=== PATIENT | male | born 1955 | race Caucasian/White ===

== ENCOUNTER 2020-01-15 01:32 | Inpatient (IN) | payer MEDICAID, OTHER ==
[2020-01-15] VITALS (18 sets, daily range): BP systolic 125–202; BP diastolic 78–124
[~2020-01-15] VITALS: Ht 172.7 cm; Wt 99.8 kg
[2020-01-15] MEDS ORDERED: Omnipaque-300 100ml vial INJ PRN (01:45)
[2020-01-15] MEDS ORDERED: Morphine Sulfate 4mg/ml Inj (IV USE ONLY) IVP ONE (01:45)
[2020-01-15 01:59] LABS: EOSINOPHILS % (AUTO) 4.6 % (0.0-3.0); HEMATOCRIT 53.7 % (42.0-52.0); HEMOGLOBIN 17.4 G/DL (14.2-18.0); LYMPHOCYTES % (AUTO) 16.8 % (20.0-45.0); MEAN CORPUSCULAR VOLUME 86 FL (80-99); MONOCYTES % (AUTO) 4.2 % (1.0-10.0); NEUTROPHILS % (AUTO) 73.4 % (45.0-75.0); PLATELET COUNT 270 K/UL (150-450); RED BLOOD COUNT 6.23 M/UL (4.70-6.10); RED CELL DISTRIBUTION WIDTH 16.3 % (11.6-14.8); WHITE BLOOD COUNT 8.6 K/UL (4.8-10.8)
[2020-01-15] MEDS ORDERED: Labetalol 5mg/ml 20ml vial IV ONE (02:00)
--- NOTE | 2020-01-15 02:01 | Emergency Room Report ---
History of Present Illness General Chief Complaint: Abdominal Pain Source: Patient Present Illness HPI 64-year-old male with past medical history of hypertension, diverticulosis, ventral hernia presents by ambulance with complaint of abdominal pain near his hernia sites. Also endorses nausea and constipation. Last normal BM was 4 days ago. Last po was yesterday. Denies vomiting, melena, hematochezia, CP, cough, fever, SOB, back pain, flank pain or weakness. The patient's symptoms were gradual onset, severity was moderate, duration since 4 days. Quality: aching Past medical history: HTN, Diverticulosis Past surgical history: Ventral hernia repair with mesh 15 years ago -- @ [facility] Smoking: Denies Alcohol use: Denies Drug use: Denies Review of systems: CONST: No fevers or chills, No night sweats PULMONARY: No productive cough, No shortness of breath CARDIAC: No chest pain, No palpitations GI: No vomiting, +Nausea, No diarrhea , No melena_or_BRBPR : No dysuria, No hematuria, No discharge NEURO: No new_focal_weakness_or_numbness, No confusion, No vision changes 14 point Review of Systems is otherwise negative except per HPI Physical Exam: GENERAL: Awake_alert_ nontoxic, no acute distress Spo2 100% on RA -normal EYES: Extraocular muscles are intact. Conjunctivae clear. Lids without swelling ENT: External nose and ear normal_in_appearance. Oropharynx clear. Head_ atraumatic, Moist_oral_mucosa NECK: No JVD. No meningismus. No thyromegaly. Supple. Trachea midline RESP: Normal respiratory effort. Symmetric rise. No stridor. Clear_to_ auscultation_No_rales_No_wheezes CARDIAC: Regular rate and regular rhythm on_auscultation No_significant pedal edema. ABDOMEN: Soft. Nondistended. Midline Exlap scar well healed. +Ventral hernia x 2 with warmth. Will not attempt reduction due to concern for strangulation MSK: Normal muscle tone, without rigidity. Extremities without asymmetric deformity or swelling. SKIN: Warm and dry. No visible cyanosis or pallor NEUROLOGIC: Alert, oriented x3. Motor_and_sensation_grossly_intact. No truncal ataxia. Gait_normal Psych: Normal mood and affect, normal judgment and insight - COORDINATION OF CARE Case was discussed with: Patient Any labs and imaging that were ordered were interpreted as part of the medical decision making: Medical Decision Making/Plan: Differential diagnosis includes cholecystitis, choledocholithiasis, hepatitis, small bowel obstruction, volvulus, AAA, pancreatitis, atypical appendicitis, gastroparesis, gastritis, peptic ulcer disease, among others. Patient is well appearing with stable vital signs. Abdominal exam is notable for warm and tender L ventral hernia x 2. Did not attempt reduction due to concern for incarcerated vs strangulated hernia. Labs show no acute disease EKG shows no acute ischemia. CT abd/pelvis shows 2 incarcerated left ventral hernias with surrounding fat stranding and free fluid. The bowel loops are mildly dilating and there is small bowel obstruction. 0330: General surgery Dr. Hendricks was consulted. Was able to reduce hernia at bedside, however due to large surgical wound dehiscence at abdominal wall (seen on CT review), hernia popped out. Initially recommended admit for serial abdominal exams, but on further exam on CT, recommends likely operative repair this afternoon. Pt received Zosyn and vancomycin. Will be kept NPO. Will delay NG tube for now given incarcerated hernia and increased inflammation. The patients symptoms are not consistent with ACS (acute coronary syndrome), symptoms are not exertional, EKG without obvious ischemic change. Will admit to SDU. I spoke with Dr. Fletcher (covering for Dr Barajas), and reviewed the patients presentation, workup, results, and treatment. They will admit the patient for further care and evaluation, and assume care of the patient at this time. Allergies: Coded Allergies: No Known Allergies (Verified , 12/20/07) COVID-19 Screening Contact w/high risk pt: No Experienced COVID-19 symptoms?: No COVID-19 Testing performed CREW PERSON: No Nursing Documentation-PMH Hx Cardiac Problems: Yes - HLD Hx Hypertension: Yes Hx Cancer: No Hx Gastrointestinal Problems: Yes - DIVERTICULITIS Hx Neurological Problems: No Physical Exam Vital Signs Date Time Temp Pulse Resp B/P (MAP) Pulse Ox O2 Delivery O2 Flow Rate FiO2 01/15/20 01:27 98.8 88 18 210/150 (170) 99 Room Air Sp02 EP Interpretation: reviewed, normal Procedures Critical Care Time Critical Care Time Critical Care Statement Organ systems at risk include: Cardiac, circulatory, GI Critical care performed for 50 minutes. Time is exclusive of separately billable procedures. Time includes: direct patient care, continuous monitoring and multiple patient reassessment, coordination of patient care, review of patient's medical records , medical consultation, family consultation regarding treatment decisions and documentation of patient care. Medical Decision Making Diagnostic Impression: Primary Impression: Incarcerated hernia Additional Impressions: Ventral hernia HTN (hypertension) Diverticulosis EKG Diagnostic Results MEGHNA Ponce 12-lead EKG (interpreted by me) Time: 0151 Indication: Rhythm analysis Tracing visualized and Interpreted by me. Rhythm: Normal sinus rhythm Rate: 78 bpm QTc: 460 Morphology: No_significant_ST_elevations_or_depressions, No STEMI Impression: Normal_sinus_rhythm_without_significant_abnormality Rhythm Strip Diag. Results Rhythm Strip Time: 02:00 EP Interpretation: yes Rate: 81 Rhythm: NSR, no PVC's, no ectopy Chest X-Ray Diagnostic Results Chest X-Ray Diagnostic Results : MEGHNA Ponce Chest X-Ray: Views: [ 1 ] view(s) Indication: Chest pain Findings: Cardiomegaly. Mediastinum normal. No infiltrate. Impression: Cardiomegaly, mild vascular congestion The X-ray(s) were independently viewed and interpreted contemporaneously Electronically signed by , Taina Rodriguez, CT/MRI/US Diagnostic Results CT/MRI/US Diagnostic Results : Impression CT Abdomen and Pelvis With Intravenous Contrast FINDINGS: Lung bases: No mass. No consolidation. Enlarged heart. ABDOMEN: Liver: Unremarkable. Gallbladder and bile ducts: Unremarkable. Pancreas: Unremarkable. Spleen: Unremarkable. Adrenals: Unremarkable. Kidneys and ureters: No hydronephrosis. Cysts bilaterally. Stomach and bowel: Mild dilatation of the small bowel loops in the midabdomen. Colonic diverticulosis. Thickened sigmoid colon. PELVIS: Appendix: No evidence of appendicitis. Bladder: Unremarkable. Reproductive: Unremarkable. ABDOMEN and PELVIS: Intraperitoneal space: Unremarkable. Bones/joints: No acute fractures. Grade 1 anterolisthesis of L5 on S1 secondary to bilateral L5 pars defects. Soft tissues: 2 left Ventral hernias containing loops of small bowel with mild dilatation of the small bowel loops. Fat stranding and free fluid in both hernia sacs. Right fat containing inguinal hernia. Vasculature: No abdominal aortic aneurysm. Lymph nodes: No enlarged lymph nodes. IMPRESSION: 1. 2 Left Ventral hernias containing loops of small bowel with fat stranding and free fluid concerning for incarceration in both sacs. The bowel loops are mildly starting to dilate, cannot exclude developing small bowel obstruction. 2. Colonic diverticulosis. Thickened sigmoid colon is again seen. Again, cannot exclude neoplastic process versus hypertrophy. Reevaluation Time: 02:54 Last Vital Signs Date Time Temp Pulse Resp B/P (MAP) Pulse Ox O2 Delivery O2 Flow Rate FiO2 01/15/20 01:56 88 210/150 01/15/20 01:27 98.8 18 99 Room Air Status: improved Disposition: ADMITTED INPATIENT Admit Decision Time: 03:00 Condition: Stable Scripts No Active Prescriptions or Reported Meds Taina Rodriguez D.O. Jan 15, 2020 02:01
[2020-01-15 02:07] LABS: INR 0.9 (0.9-1.1)
[2020-01-15 02:13] LABS: ANION GAP 12 mmol/L (5-15); BLOOD UREA NITROGEN 23 mg/dL (7-18); CALCIUM 9.1 MG/DL (8.5-10.1); CARBON DIOXIDE 24 MMOL/L (21-32); CHLORIDE 100 MMOL/L (98-107); CREATININE 1.1 MG/DL (0.55-1.30); POTASSIUM 3.8 MMOL/L (3.5-5.1); SODIUM 136 MMOL/L (136-145)
[2020-01-15 02:17] LABS: ALANINE AMINOTRANSFERASE 23 U/L (12-78); ALBUMIN 4.4 G/DL (3.4-5.0); ALBUMIN/GLOBULIN RATIO 1.1 (1.0-2.7); ALKALINE PHOSPHATASE 104 U/L (46-116); ASPARTATE AMINO TRANSFERASE 29 U/L (15-37); BILIRUBIN,TOTAL 0.4 MG/DL (0.2-1.0)
--- NOTE | 2020-01-15 03:26 | Diagnostic Imaging Report ---
EXAM: CT Abdomen and Pelvis With Intravenous Contrast CLINICAL HISTORY: PAIN TECHNIQUE: Axial computed tomography images of the abdomen and pelvis with intravenous contrast. CTDI is 14 mGy and DLP is 741 mGy-cm. One or more of the following dose reduction techniques were used: automated exposure control, adjustment of the mA and/or kV according to patient size, use of iterative reconstruction technique. COMPARISON: 06.23.19 FINDINGS: Lung bases: No mass. No consolidation. Enlarged heart. ABDOMEN: Liver: Unremarkable. Gallbladder and bile ducts: Unremarkable. Pancreas: Unremarkable. Spleen: Unremarkable. Adrenals: Unremarkable. Kidneys and ureters: No hydronephrosis. Cysts bilaterally. Stomach and bowel: Mild dilatation of the small bowel loops in the midabdomen. Colonic diverticulosis. Thickened sigmoid colon. PELVIS: Appendix: No evidence of appendicitis. Bladder: Unremarkable. Reproductive: Unremarkable. ABDOMEN and PELVIS: Intraperitoneal space: Unremarkable. Bones/joints: No acute fractures. Grade 1 anterolisthesis of L5 on S1 secondary to bilateral L5 pars defects. Soft tissues: 2 left Ventral hernias containing loops of small bowel with mild dilatation of the small bowel loops. Fat stranding and free fluid in both hernia sacs. Right fat containing inguinal hernia. Vasculature: No abdominal aortic aneurysm. Lymph nodes: No enlarged lymph nodes. IMPRESSION: 1. 2 Left Ventral hernias containing loops of small bowel with fat stranding and free fluid concerning for incarceration in both sacs. The bowel loops are mildly starting to dilate, cannot exclude developing small bowel obstruction. 2. Colonic diverticulosis. Thickened sigmoid colon is again seen. Again, cannot exclude neoplastic process versus hypertrophy.
[2020-01-15] MEDS ORDERED: Vancomycin 1 GM in NS 275 ML IVPB ONE (03:45)
[2020-01-15] MEDS ORDERED: Piperacillin/Tazobactam 2.25 GM in NS 110 ML IVPB ONE (03:45)
[2020-01-15 03:54] LABS: APPEARANCE,URINE CLEAR; BILIRUBIN, URINE NEGATIVE (NEGATIVE); COLOR,URINE PALE YELLOW; GLUCOSE, URINE (UA) NEGATIVE (NEGATIVE); KETONES,URINE NEGATIVE (NEGATIVE); LEUKOCYTE ESTERASE ,URINE NEGATIVE (NEGATIVE); NITRITE,URINE NEGATIVE (NEGATIVE); PH,URINE 6.5 (4.5-8.0); PROTEIN,URINE 3+ (NEGATIVE); UROBILINOGEN,URINE NORMAL MG/DL (0.0-1.0)
[2020-01-15] MEDS ORDERED: Acetaminophen 650 MG SUPP RECTAL PRN ×3 (04:00→21:45)
[2020-01-15] MEDS ORDERED: Morphine Sulfate 4mg/ml Inj (IV USE ONLY) IVP PRN ×3 (04:00→21:45)
[2020-01-15] MEDS ORDERED: D5 1/2NS w/KCl 20mEq 1,000 ML IV SCH ×3 (05:00→19:00)
[2020-01-15] MEDS ORDERED: Heparin 5000 units/ml inj SUBQ SCH (09:00)
--- NOTE | 2020-01-15 10:23 | History and Physical ---
Zita Pierre VETERINARY PARASITOLOGIST 01/15/20 1023: History of Present Illness General Date patient seen: Jan 15, 2020 Time patient seen: 08:30 Reason for Hospitalization: Abdominal Pain Present Illness HPI 64 years old male with PMH of diverticulitis, HTN, HLD, ventral hernias , exp lap years ago , presented to emergency department complaining of abdominal pain at the hernia sites. Patient reported nausea but no vomiting. He denied melena , hematochezia, BRBPR . No chest pain or shortness of breath. No cough. He denied fever and chills. Symptoms started gradually and increased over 4 days. Upon evaluation patient had no fever, but blood pressure was significantly elevated 210/150. CT of the abdomen pelvis showed two incarcerated ventral hernia with surrounding fat stranding and free fluid. The bowel loops were mildly dilated and there was a concern for small bowel obstruction. Laboratory work-up was stable. No leukocytosis Lactic acid 2.0. Troponin negative Stable electrolytes. BUN 23, creatinine 1.1. Troponin negative, pro BNP 55. EKG revealed sinus rhythm , no acute ischemic changes. Urinalysis revealed no evidence of urinary tract infection. Surgeon consulted and was able to reduce hernia at the bedside. However due to large surgical wound dehiscence at abdominal wound wall ,seen on CT review, hernia popped out. Surgeon initially recommended admit for serial abdominal exams, but on further examination and review of CT recommended operative repair. Patient received empiric Zosyn and vancomycin. Patient received labetalol IV. Patient started on the IV fluids, received analgesic and antiemetic and admitted to stepdown unit for further management Allergies: Coded Allergies: No Known Allergies (Verified , 12/20/07) COVID-19 Screening Contact w/high risk pt: No Experienced COVID-19 symptoms?: No Medication History No Active Prescriptions or Reported Meds Patient History History Provided By: Patient Healthcare decision maker Resuscitation status Full code Advanced Directive on File Past Medical/Surgical History Past Medical/Surgical History: (1) HTN (hypertension) (2) Diverticulosis Review of Systems Constitutional: Reports: weakness Eye: Reports: no symptoms ENT: Reports: no symptoms Respiratory: Reports: no symptoms Cardiovascular: Reports: no symptoms Gastrointestinal: Reports: see HPI Genitourinary: Reports: no symptoms Musculoskeletal: Reports: no symptoms Skin: Reports: no symptoms Psychiatric: Reports: no symptoms Neurological: Reports: no symptoms Endocrine: Reports: no symptoms Hematologic/Lymphatic: Reports: no symptoms Physical Exam General Appearance: WD/WN, no apparent distress, alert Lines, tubes and drains: peripheral HEENT: normocephalic, atraumatic, anicteric, PERRL, EOMI, supple, no JVD Neck: non-tender, normal alignment, supple Respiratory/Chest: chest wall non-tender, lungs clear, no respiratory distress , no accessory muscle use Cardiovascular/Chest: normal peripheral pulses, normal rate, regular rhythm, no JVD Abdomen: soft, other - midline explor lap scar well healed.; +Vventral hernia x 2 with warmth Extremities: normal range of motion, non-tender, no calf tenderness, normal capillary refill Skin Exam: normal pigmentation, warm/dry Neurologic: chief engineer production II-XII grossly normal, no motor/sensory deficits, alert, oriented x 3, responsive Musculoskeletal: normal muscle bulk Last 24 Hour Vital Signs Date Time Temp Pulse Resp B/P (MAP) Pulse Ox O2 Delivery O2 Flow Rate FiO2 01/15/20 08:43 160/103 01/15/20 08:33 160/103 (122) 01/15/20 08:27 97.7 77 20 157/103 (121) 97 01/15/20 08:00 83 01/15/20 05:00 97.0 85 14 155/102 (119) 96 01/15/20 04:59 Room Air 01/15/20 04:50 98.8 88 18 153/109 100 Room Air 01/15/20 02:55 88 173/96 100 Room Air 01/15/20 02:24 164/104 01/15/20 02:17 98.8 01/15/20 02:12 176/106 01/15/20 02:08 88 18 Room Air 01/15/20 02:08 98.8 76 18 202/102 99 Room Air 01/15/20 01:56 88 210/150 01/15/20 01:27 98.8 88 18 210/150 (170) 99 Room Air Intake and Output 01/14/20 01/15/20 19:00 07:00 Intake Total 0 ml Balance 0 ml Intake Oral 0 ml # Bowel Movements 1 Laboratory Tests Test 01/15/20 01:42 01/15/20 01:55 01/15/20 03:44 White Blood Count 8.6 K/UL (4.8-10.8) Red Blood Count 6.23 M/UL (4.70-6.10) H Hemoglobin 17.4 G/DL (14.2-18.0) Hematocrit 53.7 % (42.0-52.0) H Mean Corpuscular Volume 86 FL (80-99) Mean Corpuscular Hemoglobin 28.0 PG (27.0-31.0) Mean Corpuscular Hemoglobin Concent 32.4 G/DL (32.0-36.0) Red Cell Distribution Width 16.3 % (11.6-14.8) H Platelet Count 270 K/UL (150-450) Mean Platelet Volume 7.2 FL (6.5-10.1) Neutrophils (%) (Auto) 73.4 % (45.0-75.0) Lymphocytes (%) (Auto) 16.8 % (20.0-45.0) L Monocytes (%) (Auto) 4.2 % (1.0-10.0) Eosinophils (%) (Auto) 4.6 % (0.0-3.0) H Basophils (%) (Auto) 1.0 % (0.0-2.0) Prothrombin Time 10.5 SEC (9.30-11.50) Prothromb Time International Ratio 0.9 (0.9-1.1) Sodium Level 136 MMOL/L (136-145) Potassium Level 3.8 MMOL/L (3.5-5.1) Chloride Level 100 MMOL/L (98-107) Carbon Dioxide Level 24 MMOL/L (21-32) Anion Gap 12 mmol/L (5-15) Blood Urea Nitrogen 23 mg/dL (7-18) H Creatinine 1.1 MG/DL (0.55-1.30) Estimat Glomerular Filtration Rate > 60 mL/min (>60) Glucose Level 111 MG/DL (74-106) H Calcium Level 9.1 MG/DL (8.5-10.1) Total Bilirubin 0.4 MG/DL (0.2-1.0) Aspartate Amino Transf (AST/SGOT) 29 U/L (15-37) Alanine Aminotransferase (ALT/SGPT) 23 U/L (12-78) Alkaline Phosphatase 104 U/L (46-116) Troponin I 0.001 ng/mL (0.000-0.056) Pro-B-Type Natriuretic Peptide 55 pg/mL (0-125) Total Protein 8.3 G/DL (6.4-8.2) H Albumin 4.4 G/DL (3.4-5.0) Globulin 3.9 g/dL Albumin/Globulin Ratio 1.1 (1.0-2.7) Lipase 145 U/L (73-393) Lactic Acid Level 2.00 mmol/L (0.4-2.0) Urine Color Pale yellow Urine Appearance Clear Urine pH 6.5 (4.5-8.0) Urine Specific Gerber 1.010 (1.005-1.035) Urine Protein 3+ (NEGATIVE) H Urine Glucose (UA) Negative (NEGATIVE) Urine Ketones Negative (NEGATIVE) Urine Blood 2+ (NEGATIVE) H Urine Nitrite Negative (NEGATIVE) Urine Bilirubin Negative (NEGATIVE) Urine Urobilinogen Normal MG/DL (0.0-1.0) Urine Leukocyte Esterase Negative (NEGATIVE) Urine RBC 2-4 /HPF (0 - 0) H Urine WBC 0 /HPF (0 - 0) Urine Squamous Epithelial Cells None /LPF (NONE/OCC) Urine Bacteria None /HPF (NONE) Height (Feet): 5 Height (Inches): 8.00 Weight (Pounds): 222 Medications Current Medications Medications (Trade) Dose Ordered Sig/Leila Route PRN Reason Start Time Stop Time Status Last Admin Dose Admin Clonidine HCl (Catapres TTS-3) 1 patch QWEEK TDERMAL 01/15/20 09:00 04/14/20 08:59 01/15/20 08:43 Dextrose/ Electrolytes 1,000 ml @ 100 mls/hr Q10H IV 01/15/20 08:00 02/14/20 07:59 01/15/20 08:49 Heparin Sodium (Porcine) (Heparin 5000 units/ml) 5,000 units EVERY 12 HOURS SUBQ 01/15/20 09:00 02/29/20 08:59 Hydralazine HCl (Apresoline) 20 mg Q4H PRN IV SBP>170 01/15/20 07:17 04/14/20 07:16 Iohexol (OMNIPAQUE-300 100ml) 100 ml NOW PRN INJ Radiology Procedure 01/15/20 01:45 01/17/20 01:44 Morphine Sulfate (Morphine Sulfate) 4 mg Q4H PRN IVP For Pain 01/15/20 06:45 01/22/20 06:44 Ondansetron HCl (Zofran) 4 mg Q6H PRN IVP Nausea & Vomiting 01/15/20 06:45 02/14/20 06:44 Assessment/Plan Assessment/Plan: ASSESSMENT Incarcerated ventral hernia Possible small bowel obstruction Hypertension with initial hypertensive urgency Diverticular disease with a history of recurrent diverticulitis Hypertension Hyperlipidemia PLAN OF CARE LIZ NPO IVF surgery pending for this afternoon will get rapid COVID 19 pain management a/emetic prn DVT prophylaxis hold off on abx BP management with Clonidine patch and IV Hydralazine prn for BP spikes after surgery will optimize further as needed bowel regimen after surgery supportive care case discussed and evaluated by supervising physician Paul Hand MD 01/15/20 1439: History of Present Illness General Reason for Hospitalization: Abdominal Pain Present Illness Allergies: Coded Allergies: No Known Allergies (Verified , 12/20/07) Medication History No Active Prescriptions or Reported Meds Assessment/Plan Assessment/Plan: Patient seen and examined with VETERINARY PARASITOLOGIST. Agree with above A&P as it reflects our joint deliberations. Zita Pierre NP Jan 15, 2020 10:23 Paul Hand MD Jan 15, 2020 14:39
--- NOTE | 2020-01-15 10:46 | Diagnostic Imaging Report ---
Indication: Shortness of breath Technique: XRAY Chest 1v Comparison:12/20/2007 Findings: The heart is at the upper limits of normal size. Lungs are clear. No pleural fluid. Osseous structures mild degenerative changes in the spine. Impression: Borderline cardiomegaly. Degenerative changes in the spine.
--- NOTE | 2020-01-15 11:00 | Consultation ---
DATE OF CONSULTATION: 01/15/2020 PREOPERATIVE CONSULTATION CONSULTING PHYSICIAN: Mirella Hendricks MD. REFERRING PHYSICIAN: Emergency room physician. REASON FOR CONSULTATION: Abdominal pain. HISTORY OF PRESENT ILLNESS: This is a 64-year-old male, who presented to emergency room complaining of pain in the abdomen for about a month. He stated that he has been having pain off and on. But this time, the pain started about 12 hours prior to the admission and it is located above the umbilicus. The pain apparently is crampy. He denies any nausea or vomiting, but he stated that he tried to make himself vomit. The patient stated that 15 years ago he had a ventral herniorrhaphy, but later he had recurrence, but recently has been having pain. He had stated that this morning the hernia was irreducible and very tender. PAST MEDICAL HISTORY: He denies allergies, asthma, diabetes, cardiac and renal diseases. He has a history of hypertension. PAST SURGICAL HISTORY: Include ventral herniorrhaphy and some kind of surgery on the left groin. MEDICATIONS: None. SOCIAL HISTORY: The patient is a 64-year-old male, who is without any children. He is retired. He smokes half a pack of cigarettes per day and drinks occasionally. REVIEW OF SYSTEMS: Noncontributory. PHYSICAL EXAMINATION: GENERAL: The patient appeared to be a well-developed and well-nourished 64-year-old male, mildly obese, in no acute distress. HEENT: Head is normocephalic and atraumatic. Eyes, pupils are equal, round, and reactive to light. Mouth is clear. NECK: No palpable thyromegaly or adenopathy. CHEST: Clear to auscultation and percussion. HEART: There is no gallop or murmur. S1 and S2 are within normal limits. ABDOMEN: Mildly protuberant, but soft. He has a scar of the midline incision above the umbilicus. Hernia can be felt in this area, but this hernia is reducible. The patient stated that , although it is partially reducible and there is still some left that cannot be reduced and that causes discomfort. There is no palpable organomegaly and bowel sounds are audible. GENITALIA: Deferred. EXTREMITIES: Within normal limits. LABORATORY AND DIAGNOSTIC DATA: CBC and chemistry are normal. CAT scan has shown the ventral hernia and right inguinal hernia. ASSESSMENT: Incarcerated ventral hernia. PLAN: At this time, the patient required to be admitted for observation and later today he will undergo repair of this ventral hernia. The risks and benefits have been explained to him. He understood and he granted consent for it. Mirella Hendricks M.D. DR: KRIS JOB#: [id number] CC:
--- NOTE | 2020-01-15 13:57 | Pre-Procedure Note/Attestation ---
Pre-Procedure Note/Attestation Complete Prior to Procedure Planned Procedure: not applicable Procedure Narrative: venteral herniorrhaphy with application of mesh Indications for Procedure Pre-Operative Diagnosis: incarcerated ventral hernia Attestation I attest that I discussed the nature of the procedure; its benefits; risks and complications; and alternatives (and the risks and benefits of such alternatives ), prior to the procedure, with the patient (or the patient's legal insurance healthcare representative). I attest that, if there was a reasonable possibility of needing a blood transfusion, the patient (or the patient's legal insurance healthcare representative) was given the [facility] standardized written summary, pursuant to the [place] Blood Safety Act ([place] Health and Safety Code # 1645, as amended). I attest that I re-evaluated the patient just prior to the surgery and that there has been no change in the patient's H&P, except as documented below: Mirella Hendricks MD Jan 15, 2020 13:57
[2020-01-15] MEDS ORDERED: LR 1000ml 1,000 ML IVLG SCH (14:03)
[2020-01-15] MEDS ORDERED: Bacitracin 50000 Units Vial ONE (14:05)
[2020-01-15] MEDS ORDERED: Bupivacaine 0.25% Inj 30ml INJ ONE (14:05)
--- NOTE | 2020-01-15 14:07 | Anethesia Preoperative Eval ---
Anesthesia Pre-op PMH/ROS General Date of Evaluation: Jan 15, 2020 Time of Evaluation: 14:04 Anesthesiologist: Sadiq ASA Score: ASA 3 - Emergency Mallampati Score Class I : Soft palate, uvula, fauces, pillars visible Class II: Soft palate, uvula, fauces visible Class III: Soft palate, base of uvula visible Class IV: Only hard plate visible Mallampati Classification: Class III Surgeon: Ruthie Diagnosis: Abd Pain Surgical Procedure: Repair Ventral Hernia Anesthesia History: none Family History: no anesthesia problems Allergies: Coded Allergies: No Known Allergies (Verified , 12/20/07) Medications: see eMAR Patient NPO?: Yes Past Medical History Cardiovascular: Reports: HTN, other - HL Gastrointestinal/Genitourinary: Reports: other - Diverticulitis PSxH Narrative: other Sxs Anesthesia Pre-op Phys. Exam Physician Exam Last Vital Signs Date Time Temp Pulse Resp B/P (MAP) Pulse Ox O2 Delivery O2 Flow Rate FiO2 01/15/20 12:57 98.0 76 20 152/99 (116) 97 01/15/20 12:00 Room Air Constitutional: NAD Neurologic: CN 2-12 intact Cardiovascular: RRR Respiratory: CTA Gastrointestinal: S/NT/ND Airway Exam Mallampati Score: Class III MO: full ROM: limited Teeth: missing, intact Anesthesia Pre-op A/P Labs Hematology Test 01/15/20 01:42 White Blood Count 8.6 K/UL (4.8-10.8) Red Blood Count 6.23 M/UL (4.70-6.10) H Hemoglobin 17.4 G/DL (14.2-18.0) Hematocrit 53.7 % (42.0-52.0) H Mean Corpuscular Volume 86 FL (80-99) Mean Corpuscular Hemoglobin 28.0 PG (27.0-31.0) Mean Corpuscular Hemoglobin Concent 32.4 G/DL (32.0-36.0) Red Cell Distribution Width 16.3 % (11.6-14.8) H Platelet Count 270 K/UL (150-450) Mean Platelet Volume 7.2 FL (6.5-10.1) Neutrophils (%) (Auto) 73.4 % (45.0-75.0) Lymphocytes (%) (Auto) 16.8 % (20.0-45.0) L Monocytes (%) (Auto) 4.2 % (1.0-10.0) Eosinophils (%) (Auto) 4.6 % (0.0-3.0) H Basophils (%) (Auto) 1.0 % (0.0-2.0) Coagulation Test 01/15/20 01:42 Prothrombin Time 10.5 SEC (9.30-11.50) Prothromb Time International Ratio 0.9 (0.9-1.1) Chemistry Test 01/15/20 01:42 01/15/20 01:55 Sodium Level 136 MMOL/L (136-145) Potassium Level 3.8 MMOL/L (3.5-5.1) Chloride Level 100 MMOL/L (98-107) Carbon Dioxide Level 24 MMOL/L (21-32) Anion Gap 12 mmol/L (5-15) Blood Urea Nitrogen 23 mg/dL (7-18) H Creatinine 1.1 MG/DL (0.55-1.30) Estimat Glomerular Filtration Rate > 60 mL/min (>60) Glucose Level 111 MG/DL (74-106) H Calcium Level 9.1 MG/DL (8.5-10.1) Total Bilirubin 0.4 MG/DL (0.2-1.0) Aspartate Amino Transf (AST/SGOT) 29 U/L (15-37) Alanine Aminotransferase (ALT/SGPT) 23 U/L (12-78) Alkaline Phosphatase 104 U/L (46-116) Troponin I 0.001 ng/mL (0.000-0.056) Pro-B-Type Natriuretic Peptide 55 pg/mL (0-125) Total Protein 8.3 G/DL (6.4-8.2) H Albumin 4.4 G/DL (3.4-5.0) Globulin 3.9 g/dL Albumin/Globulin Ratio 1.1 (1.0-2.7) Lipase 145 U/L (73-393) Lactic Acid Level 2.00 mmol/L (0.4-2.0) Risk Assessment & Plan Assessment: ASA 3E Plan: GA, SED, GlideScope Status Change Before Surgery: No Pre-Antibiotics Dru Grams Ancef IV Given Within 1 Hr of Incision: Yes Time Given: 14:16 Julio César Babcock MD Jan 15, 2020 14:07
--- NOTE | 2020-01-15 14:08 | Immediate Post-Op Evaluation ---
Immediate Post-Op Evalulation Immediate Post-Op Evalulation Procedure: Repair Ventral Hernia Date of Evaluation: Jan 15, 2020 Time of Evaluation: 17:14 IV Fluids: 1500 LR Blood Products: 0 Estimated Blood Loss: 200 Urinary Output: 0 Blood Pressure Systolic: 158 Blood Pressure Diastolic: 95 Pulse Rate: 88 Respiratory Rate: 16 O2 Sat by Pulse Oximetry: 97 Temperature (Fahrenheit): 98 Pain Score (1-10): 2 Nausea: No Vomiting: No Complications 0 Patient Status: awake, reacts, patent, extubated, none Hydration Status: adequate Dru grams Ancef IV Given Within 1 Hr of Incision: Yes Time Given: 14:16 Julio César Babcock MD Jan 15, 2020 14:08
[2020-01-15] MEDS ORDERED: HYDROcodone/Acetamin 5/325 tab ORAL PRN (14:15)
[2020-01-15] MEDS ORDERED: fentaNYL 100 mcg/2 mL IV PRN (14:15)
[2020-01-15] MEDS ORDERED: oxyCODONE HCL/Acetaminophen 5/325mg ORAL PRN (14:15)
[2020-01-15] MEDS ORDERED: Atropine Sulfate 0.4mg/ml inj IVP PRN (14:15)
[2020-01-15] MEDS ORDERED: Hydromorphone 0.5mg/0.5ml inj IVP PRN ×3 (14:15→21:45)
[2020-01-15] MEDS ORDERED: Metoclopramide 10mg/2ml Inj IVP PRN ×3 (14:15→21:45)
[2020-01-15] MEDS ORDERED: Rocuronium Bromide 50mg/5ml Inj IV ONE (14:15)
[2020-01-15] MEDS ORDERED: Meperidine 25mg/0.5ml Inj (FOR RIGORS ONLY) IV PRN (14:15)
[2020-01-15] MEDS ORDERED: Acetaminophen (Non formulary) 100 ML IV ONE (14:15)
[2020-01-15] MEDS ORDERED: HYDROcodone/Acetamin 7.5/325 tab ORAL PRN (14:15)
[2020-01-15] MEDS ORDERED: Midazolam 2mg/2ml Inj IVP PRN (14:15)
[2020-01-15] MEDS ORDERED: DiphenhydrAMINE 50mg/ml Inj IVP PRN (14:15)
[2020-01-15] MEDS ORDERED: LORazepam Inj 2mg/ml 1ml IV PRN (14:15)
[2020-01-15] MEDS ORDERED: Lidocaine 1% MPF 10mg/ml 5ml ONE (14:21)
[2020-01-15] MEDS ORDERED: fentaNYL 100 mcg/2 mL IV ONE ×2 (14:22→15:38)
[2020-01-15] MEDS ORDERED: Glycopyrrolate 0.2mg/ml 1ml Vial ONE (14:53)
[2020-01-15] MEDS ORDERED: Neostigmine 1mg/ml 10ml Inj ONE (14:53)
[2020-01-15] MEDS ORDERED: NS Irrig 1000ml IRRIG ONE (15:13)
[2020-01-15] MEDS ORDERED: Ketamine 500mg/10ml vial ONE (15:38)
[2020-01-15] MEDS ORDERED: Lidocaine 1% Plain 30 ml INJ ONE (15:52)
--- NOTE | 2020-01-15 16:57 | Brief Operative Note ---
Immediate Post Operative Note Operative Note Pre-op Diagnosis: incarcerated ventral hernia Procedure: 1- ventral herniorrhaphy x4 with application of mesh 2- partial omentectomy Post-op Diagnosis: same as pre-op Findings: consistent w/pre-op dx studies Surgeon: MD Dolores Full Time Staff Interpreter: none Anesthesiologist: Dr. Xiao Anesthesia: general Specimen: yes Complications: none Condition: stable Fluids: per anesthesialogist Estimated Blood Loss: volume - 150 ml Drains: other - dima Implant(s) used?: Yes Mirella Hendricks MD Jan 15, 2020 16:57
[2020-01-15] MEDS ORDERED: HYDROmorphone 1mg/ml Carpuject IVP PRN (17:00)
[2020-01-15] MEDS: D5 1/2NS w/KCl 20mEq 1,000 ML IV SCH ×2 (21:45→22:48)
[2020-01-15] MEDS ORDERED: ceFAZolin sod 1 GM in D5W 55 ML IV SCH (22:00)
--- NOTE | 2020-01-15 22:44 | Operative Note - Dictated ---
DATE OF OPERATION: 01/15/2020 PREOPERATIVE DIAGNOSIS: Incarcerated ventral hernia. POSTOPERATIVE DIAGNOSIS: Incarcerated ventral hernia. OPERATION: 1. Ventral herniorrhaphy x4 with application of mesh. 2. Extensive lysis of the adhesion. 3. Partial omentectomy. COMPLICATIONS: None. SURGEON: Mirella Hendricks MD PER DIEM PHYSICAL THERAPIST ASSISTANT: None. ANESTHESIA: General with endotracheal tube. ANESTHESIOLOGIST: Julio César Babcock MD INDICATION: This is a 64-year-old male who presented to the emergency room complaining of abdominal pain. He stated that he has been having abdominal pain for about a year, but it has been off and on, but the last episode which was 12-hour prior to the admission, he had severe abdominal pain in the upper abdomen. He stated that he had hernia in this area, which was reducible, but prior to the admission it was irreducible and very tender. He denied vomiting or nausea. He has a history of hernia surgery about 15 years ago, which apparently has recurred. Physical examination on admission to the emergency room showed an irreducible ventral hernia at the mid epigastrium, but by the time that I saw the patient, the hernia was partially reduced but he continued having mild pain so the patient was admitted to the hospital and at this time he has been scheduled for ventral herniorrhaphy for incarceration of the hernia. DESCRIPTION OF PROCEDURE: The patient was placed supine on the operating table and after general anesthesia with endotracheal tube, the abdomen was properly prepped and draped. Initially midline incision was given above the umbilicus through the previous scar and was carried sharply through the subcutaneous tissue. At this area, we reached the hernia. It was very strange that the hernia did not have any and it was only the structures which seemed to be small bowel, so very carefully extensive meticulous dissection was performed and finally the whole mass was completely dissected. This mass especially extended on the right . The whole area was very carefully and meticulously dissected. There was absolutely no injury to this structure and then finally I was able to get inside to enter the abdomen and next to the structure, and at the entrance the whole mass was completely released. This was a large area about the size of a grapefruit. After this was completely released, I noticed that this was not a small bowel. It was only omentum, so the decision was made for partial omentectomy. The omentum underwent multiple ligation with 0 silk and the incarcerated part was completely removed. At this time, we had a defect in the fascia, which was about 3.5 to 4 inches in length. The small bowel was delivered in the wound and the small bowel was run and then it was completely freed. There was some small adhesions, which did not affect the small bowel, so it was again returned into the intraperitoneal cavity and then the fascia around the defect was isolated and at this time we noticed two more defects on the right side of the defect through which the preperitoneal fat was protruding. The preperitoneal fat was resected and the defects were repaired with #1 Prolene. The umbilicus was released and the patient had hernia in the umbilicus, which contained preperitoneal fat. Again, the preperitoneal fat was resected and the hernia was repaired with #[address], we had one major defect and three small defects. At this time, the defect in the fascia was repaired with running suture of #[address] hernia and defect in the fascia was completely repaired. The incision was thoroughly irrigated with antibiotic solution and then a piece of Prolene mesh was selected and was placed directly over the repair. This mesh was secured in place with running suture of 0 Prolene. After the application of the mesh, the incision again was irrigated with antibiotic solution and was infiltrated with 30 mL of Marcaine 0.25%. A Ramo drain was placed directly over the mesh and was brought out from the separate stab wound at the right lower quadrant. The subcutaneous tissue was approximated with running suture of 3-0 Vicryl and the skin incision, which was over 4 inches, was approximated with multiple skin charo. The patient tolerated the procedure very well and was transferred to recovery room in stable condition and extubated. COUNTS: The sponge and needle count was correct. ESTIMATED BLOOD LOSS: 150 mL. CONDITION: Condition of the patient at the end of procedure was stable. Mirella Hendricks M.D. DR: Roger JOB#: [id number] CC:
[2020-01-15] MEDS: ceFAZolin sod 1 GM in D5W 55 ML IV SCH (22:50)
[2020-01-16] VITALS: BP 133/82
[2020-01-16] MEDS ORDERED: Omnipaque-300 100ml vial INJ PRN (01:45)
[2020-01-16 04:00] VITALS: BP 127/72
[2020-01-16] MEDS: ceFAZolin sod 1 GM in D5W 55 ML IV SCH (06:11)
[2020-01-16 06:14] LABS: HEMATOCRIT 43.9 % (42.0-52.0); HEMOGLOBIN 13.8 G/DL (14.2-18.0); MEAN CORPUSCULAR VOLUME 88 FL (80-99); PLATELET COUNT 220 K/UL (150-450); RED BLOOD COUNT 4.98 M/UL (4.70-6.10); RED CELL DISTRIBUTION WIDTH 16.7 % (11.6-14.8); WHITE BLOOD COUNT 10.5 K/UL (4.8-10.8)
[2020-01-16 06:38] LABS: ANION GAP 8 mmol/L (5-15); BLOOD UREA NITROGEN 21 mg/dL (7-18); CALCIUM 8.6 MG/DL (8.5-10.1); CARBON DIOXIDE 25 MMOL/L (21-32); CHLORIDE 106 MMOL/L (98-107); POTASSIUM 3.8 MMOL/L (3.5-5.1); SODIUM 139 MMOL/L (136-145)
--- NOTE | 2020-01-16 07:03 | 48 Hour Post Anesthesia Eval ---
Post Anesthesia Evaluation Procedure: Repair Ventral Hernia Date of Evaluation: Jan 16, 2020 Time of Evaluation: 06:14 Blood Pressure Systolic: 122 0: 72 Pulse Rate: 74 Respiratory Rate: 20 Temperature (Fahrenheit): 98.2 O2 Sat by Pulse Oximetry: 96 Airway: patent Nausea: No Vomiting: No Pain Intensity: 3 Hydration Status: adequate Cardiopulmonary Status: Stable Mental Status/LOC: patient returned to baseline Follow-up Care/Observations: 0 Post-Anesthesia Complications: 0 Follow-up care needed: N/A Julio César Babcock MD Jan 16, 2020 07:03
[2020-01-16 08:00] VITALS: BP 165/109
[2020-01-16] MEDS ORDERED: Pantoprazole Inj IVP SCH (09:00)
[2020-01-16] MEDS: D5 1/2NS w/KCl 20mEq 1,000 ML IV SCH (09:01)
[2020-01-16] MEDS: Pantoprazole Inj IVP SCH (09:10)
[2020-01-16] MEDS: HYDROmorphone 1mg/ml Carpuject IVP PRN ×2 (09:12→20:16)
[2020-01-16] MEDS ORDERED: Metoprolol Succinate XL 25mg tab ORAL SCH ×2 (09:15→16:39)
[2020-01-16] MEDS ORDERED: Sterile Water Irrig 1000ml IRRIG ONE (09:18)
[2020-01-16] MEDS ORDERED: LR 1000ml ONE (09:18)
[2020-01-16] MEDS ORDERED: D5 1/2NS w/KCl 20mEq 1,000 ML IV SCH (10:01)
--- NOTE | 2020-01-16 10:03 | Pulmonology Progress Note ---
Zita Pierre WORKER'S COMPENSATION CLAIMS EXAMINER 01/16/20 1002: Subjective Allergies: Coded Allergies: No Known Allergies (Verified , 12/20/07) Subjective afebrile, no leukocytosis s/p hernia repair 01/14 denies pain, NPO passing gas, hungry Objective Last 24 Hour Vital Signs Date Time Temp Pulse Resp B/P (MAP) Pulse Ox O2 Delivery O2 Flow Rate FiO2 01/16/20 09:48 98.2 01/16/20 08:00 97.9 74 20 165/109 (127) 94 01/16/20 07:03 74 20 96 01/16/20 04:00 98.2 74 20 127/72 (90) 96 01/16/20 00:00 98.9 80 20 133/82 (99) 95 01/15/20 20:00 98.8 92 20 125/78 (94) 92 01/15/20 18:05 98.0 82 20 144/85 (104) 97 01/15/20 17:55 98.9 70 16 165/94 100 Nasal Cannula 3 01/15/20 17:40 69 15 159/82 98 Nasal Cannula 3 01/15/20 17:25 69 19 144/90 98 Nasal Cannula 3 01/15/20 17:15 70 17 161/84 98 Nasal Cannula 3 01/15/20 17:10 73 17 160/95 98 Nasal Cannula 3 01/15/20 17:05 81 22 189/104 97 Simple Mask 6 01/15/20 17:01 88 16 97 01/15/20 17:00 97.8 88 27 195/124 96 Simple Mask 6 01/15/20 12:57 98.0 76 20 152/99 (116) 97 01/15/20 12:26 181/117 01/15/20 12:21 98.1 72 20 181/117 (138) 97 01/15/20 12:00 Room Air 01/15/20 11:42 70 Intake and Output 01/15/20 01/16/20 19:00 07:00 Intake Total 2450 ml 900 ml Output Total 620 ml 420 ml Balance 1830 ml 480 ml IV Total 2450 ml 900 ml Output Urine Total 520 ml 390 ml Drainage Total 30 ml Peritoneal Dialysis UF 100 ml # Voids 1 3 Objective General Appearance: WD/WN, no apparent distress, alert Lines, tubes and drains: peripheral HEENT: normocephalic, atraumatic, anicteric, PERRL, EOMI, supple, no JVD Neck: non-tender, normal alignment, supple Respiratory/Chest: chest wall non-tender, lungs clear, no respiratory distress , no accessory muscle use Cardiovascular/Chest: normal peripheral pulses, normal rate, regular rhythm, no JVD Abdomen: soft, surg incision with dressing, JORGE drain with yellow-brown output ; abd binder on, + hypoactive BS x 4 quadrants Extremities: normal range of motion, non-tender, no calf tenderness, normal capillary refill; + 1 pedal edema Skin Exam: normal pigmentation, warm/dry Neurologic: windows deployment technician II-XII grossly normal, no motor/sensory deficits, alert, oriented x 3, responsive Musculoskeletal: normal muscle bulk Microbiology Date/Time Source Procedure Growth Status 01/15/20 09:40 Nasopharynx SARS-CoV-2 RdRp Gene Assay - Final Complete Laboratory Tests 01/16/20 05:45: White Blood Count 10.5, Red Blood Count 4.98, Hemoglobin 13.8L, Hematocrit 43.9 , Mean Corpuscular Volume 88, Mean Corpuscular Hemoglobin 27.8, Mean Corpuscular Hemoglobin Concent 31.5L, Red Cell Distribution Width 16.7H, Platelet Count 220, Mean Platelet Volume 6.6, Neutrophils (%) (Auto) , Lymphocytes (%) (Auto) , Monocytes (%) (Auto) , Eosinophils (%) (Auto) , Basophils (%) (Auto) , Sodium Level 139, Potassium Level 3.8, Chloride Level 106 , Carbon Dioxide Level 25, Anion Gap 8, Blood Urea Nitrogen 21H, Creatinine 1.0 , Estimat Glomerular Filtration Rate > 60, Glucose Level 121H, Calcium Level 8.6 Current Medications Medications (Trade) Dose Ordered Sig/Leila Route PRN Reason Start Time Stop Time Status Last Admin Dose Admin Acetaminophen (Tylenol) 650 mg Q4H PRN RECTAL FEVER (T>100.5) 01/15/20 21:45 02/14/20 21:44 Clonidine HCl (Catapres TTS-3) 1 patch QWEEK TDERMAL 01/22/20 09:00 04/14/20 08:59 Dextrose/ Electrolytes 1,000 ml @ 100 mls/hr Q10H IV 01/15/20 21:45 02/14/20 18:59 01/16/20 09:01 Heparin Sodium (Porcine) (Heparin 5000 units/ml) 5,000 units EVERY 12 HOURS SUBQ 01/16/20 21:45 02/29/20 21:44 Hydromorphone HCl (Dilaudid) 0.5 mg Q3H PRN IVP Pain Score 1-3 01/15/20 21:45 01/22/20 21:44 Hydromorphone HCl (Dilaudid) 1 mg Q3H PRN IVP pain score 4-6 01/15/20 21:45 01/22/20 21:44 01/16/20 09:12 Iohexol (OMNIPAQUE-300 100ml) 100 ml NOW PRN INJ Radiology Procedure 01/16/20 01:45 01/17/20 01:44 Metoclopramide HCl (Reglan) 10 mg Q6H PRN IVP Nausea & Vomiting 01/15/20 21:45 02/14/20 21:44 Metoprolol Succinate (Toprol XL) 25 mg DAILY ORAL 01/17/20 09:00 04/15/20 09:14 Morphine Sulfate (Morphine Sulfate) 4 mg Q4H PRN IVP Breakthrough Pain 01/15/20 21:45 01/22/20 21:44 Ondansetron HCl (Zofran) 4 mg Q6H PRN IVP Nausea & Vomiting 01/15/20 21:45 02/14/20 21:44 Pantoprazole (Protonix) 40 mg DAILY IVP 01/16/20 09:00 02/15/20 08:59 01/16/20 09:10 Assessment/Plan Assessment/Plan ASSESSMENT Incarcerated ventral hernia s/p ventral herniorrhaphy x4 with application of mesh and partial omentectomy Possible small bowel obstruction-ruled out Hypertension with initial hypertensive urgency Diverticular disease with a history of recurrent diverticulitis Hyperlipidemia PLAN OF CARE MS floor NPO IVF rapid COVID 19 NGT s/p ventral herniorrhaphy x4 with application of mesh and partial omentectomy 01/14 passing gas, hypoactive BS, ? start CL diet -as per surgery recs pain management IS at the bedside add Toprol with holding parameters and Hydralazine prn ; dc Clonidine patch a/emetic prn DVT and GI prophylaxis OOB as tolerated supportive care case discussed and evaluated by supervising physician Eugenio Barajas MD 01/16/20 1253: Subjective Allergies: Coded Allergies: No Known Allergies (Verified , 12/20/07) Assessment/Plan Assessment/Plan Patient seen and examined with WORKER'S COMPENSATION CLAIMS EXAMINER. Agree with above A&P as it reflects our joint deliberations. POD1 doing well + flatus no BM using IS pain controlled advance diet per surgery DVT Px Zita Pierre NP Jan 16, 2020 10:02 Eugenio Barajas MD Jan 16, 2020 12:53
[2020-01-16] MEDS: HydrALAZINE 10mg Tab ORAL PRN ×2 (11:42→18:52)
[2020-01-16 12:00] VITALS: BP 171/99
--- NOTE | 2020-01-16 14:36 | General Surgery Progress Note ---
General Surgery-Progress Note Subjective Procedure Performed 1- ventral herniorrhaphy x4 with application of mesh 2- partial omentectomy Symptoms: improved, passing flatus Objective Last 24 Hour Vital Signs Date Time Temp Pulse Resp B/P (MAP) Pulse Ox O2 Delivery O2 Flow Rate FiO2 01/16/20 12:00 98.1 74 18 171/99 (123) 94 01/16/20 11:42 165/109 01/16/20 09:48 98.2 01/16/20 08:00 97.9 74 20 165/109 (127) 94 01/16/20 07:03 74 20 96 01/16/20 04:00 98.2 74 20 127/72 (90) 96 01/16/20 00:00 98.9 80 20 133/82 (99) 95 01/15/20 20:00 98.8 92 20 125/78 (94) 92 01/15/20 18:05 98.0 82 20 144/85 (104) 97 01/15/20 17:55 98.9 70 16 165/94 100 Nasal Cannula 3 01/15/20 17:40 69 15 159/82 98 Nasal Cannula 3 01/15/20 17:25 69 19 144/90 98 Nasal Cannula 3 01/15/20 17:15 70 17 161/84 98 Nasal Cannula 3 01/15/20 17:10 73 17 160/95 98 Nasal Cannula 3 01/15/20 17:05 81 22 189/104 97 Simple Mask 6 01/15/20 17:01 88 16 97 01/15/20 17:00 97.8 88 27 195/124 96 Simple Mask 6 I&O Intake and Output 01/15/20 01/16/20 19:00 07:00 Intake Total 2450 ml 900 ml Output Total 620 ml 420 ml Balance 1830 ml 480 ml IV Total 2450 ml 900 ml Output Urine Total 520 ml 390 ml Drainage Total 30 ml Peritoneal Dialysis UF 100 ml # Voids 1 3 Dressing: dry Drains: dima Respiratory: clear Abdomen: soft, flat, present bowel sounds Extremities: no tenderness Laboratory Tests Test 01/16/20 05:45 White Blood Count 10.5 K/UL (4.8-10.8) Red Blood Count 4.98 M/UL (4.70-6.10) Hemoglobin 13.8 G/DL (14.2-18.0) L Hematocrit 43.9 % (42.0-52.0) Mean Corpuscular Volume 88 FL (80-99) Mean Corpuscular Hemoglobin 27.8 PG (27.0-31.0) Mean Corpuscular Hemoglobin Concent 31.5 G/DL (32.0-36.0) L Red Cell Distribution Width 16.7 % (11.6-14.8) H Platelet Count 220 K/UL (150-450) Mean Platelet Volume 6.6 FL (6.5-10.1) Neutrophils (%) (Auto) % (45.0-75.0) Lymphocytes (%) (Auto) % (20.0-45.0) Monocytes (%) (Auto) % (1.0-10.0) Eosinophils (%) (Auto) % (0.0-3.0) Basophils (%) (Auto) % (0.0-2.0) Sodium Level 139 MMOL/L (136-145) Potassium Level 3.8 MMOL/L (3.5-5.1) Chloride Level 106 MMOL/L (98-107) Carbon Dioxide Level 25 MMOL/L (21-32) Anion Gap 8 mmol/L (5-15) Blood Urea Nitrogen 21 mg/dL (7-18) H Creatinine 1.0 MG/DL (0.55-1.30) Estimat Glomerular Filtration Rate > 60 mL/min (>60) Glucose Level 121 MG/DL (74-106) H Calcium Level 8.6 MG/DL (8.5-10.1) Assessment Additional Comments S/P ventral herniorrhaphy Plan Additional Comments can be discharged tomorrow Mirella Hendricks MD Jan 16, 2020 14:36
[2020-01-16] MEDS ORDERED: traMADol 50mg tab ORAL PRN (14:45)
[2020-01-16] MEDS: Docusate Sod/Senna tab ORAL SCH ×2 (14:45→17:09)
[2020-01-16 16:00] VITALS: BP 164/85
[2020-01-16] MEDS: Lisinopril 10mg tab ORAL SCH (16:51)
[2020-01-16 20:00] VITALS: BP 147/93
[2020-01-16] MEDS: Heparin 5000 units/ml inj SUBQ SCH (21:23)
[2020-01-17] VITALS: BP 140/88
[2020-01-17 04:00] VITALS: BP 156/97
[2020-01-17 05:42] LABS: BASOPHILS % (AUTO) 0.4 % (0.0-2.0); EOSINOPHILS % (AUTO) 6.7 % (0.0-3.0); HEMATOCRIT 42.4 % (42.0-52.0); HEMOGLOBIN 13.6 G/DL (14.2-18.0); LYMPHOCYTES % (AUTO) 5.4 % (20.0-45.0); MEAN CORPUSCULAR VOLUME 88 FL (80-99); MONOCYTES % (AUTO) 5.9 % (1.0-10.0); NEUTROPHILS % (AUTO) 81.4 % (45.0-75.0); PLATELET COUNT 210 K/UL (150-450); RED BLOOD COUNT 4.84 M/UL (4.70-6.10); RED CELL DISTRIBUTION WIDTH 16.2 % (11.6-14.8); WHITE BLOOD COUNT 9.2 K/UL (4.8-10.8)
[2020-01-17 06:02] LABS: ANION GAP 9 mmol/L (5-15); BLOOD UREA NITROGEN 22 mg/dL (7-18); CALCIUM 8.9 MG/DL (8.5-10.1); CARBON DIOXIDE 26 MMOL/L (21-32); CHLORIDE 105 MMOL/L (98-107); CREATININE 1.1 MG/DL (0.55-1.30); SODIUM 140 MMOL/L (136-145)
--- NOTE | 2020-01-17 07:54 | Pulmonology Progress Note ---
Zita Pierre OPERATIONS MANAGEMENT TRAINEE 01/17/20 0754: Subjective Allergies: Coded Allergies: No Known Allergies (Verified , 12/20/07) Subjective afebrile, no leukocytosis sitting in the chair s/p hernia repair 01/14 denies pain, tolerates diet passing gas, no BM yet Objective Last 24 Hour Vital Signs Date Time Temp Pulse Resp B/P (MAP) Pulse Ox O2 Delivery O2 Flow Rate FiO2 01/17/20 04:00 98.3 81 19 156/97 (116) 95 01/17/20 00:00 98.0 76 19 140/88 (105) 96 01/16/20 20:55 Room Air 01/16/20 20:00 98.4 87 19 147/93 (111) 95 01/16/20 18:52 171/99 01/16/20 16:51 74 171/99 01/16/20 16:51 171/99 01/16/20 16:00 97.1 81 18 164/85 (111) 96 01/16/20 12:00 98.1 74 18 171/99 (123) 94 01/16/20 11:42 165/109 01/16/20 09:48 98.2 01/16/20 08:00 97.9 74 20 165/109 (127) 94 Intake and Output 01/16/20 01/17/20 19:00 07:00 Intake Total 300 ml Output Total 25 ml Balance 300 ml -25 ml Intake Oral 300 ml Drainage Total 25 ml # Voids 2 Objective General Appearance: WD/WN, no apparent distress, alert Lines, tubes and drains: peripheral HEENT: normocephalic, atraumatic, anicteric, PERRL, EOMI, supple, no JVD Neck: non-tender, normal alignment, supple Respiratory/Chest: chest wall non-tender, lungs clear, no respiratory distress , no accessory muscle use Cardiovascular/Chest: normal peripheral pulses, normal rate, regular rhythm, no JVD Abdomen: soft, surg incision with dressing, JORGE drain with scant output ; abd binder on, + hypoactive BS x 4 quadrants Extremities: normal range of motion, non-tender, no calf tenderness, normal capillary refill; + 1 pedal edema Skin Exam: normal pigmentation, warm/dry Neurologic: online program coordinator II-XII grossly normal, no motor/sensory deficits, alert, oriented x 3, responsive Musculoskeletal: normal muscle bulk Microbiology Date/Time Source Procedure Growth Status 01/15/20 09:40 Nasopharynx SARS-CoV-2 RdRp Gene Assay - Final Complete Laboratory Tests 01/17/20 04:40: White Blood Count 9.2, Red Blood Count 4.84, Hemoglobin 13.6L, Hematocrit 42.4, Mean Corpuscular Volume 88, Mean Corpuscular Hemoglobin 28.1, Mean Corpuscular Hemoglobin Concent 32.1, Red Cell Distribution Width 16.2H, Platelet Count 210, Mean Platelet Volume 6.7, Neutrophils (%) (Auto) 81.4H, Lymphocytes (%) (Auto) 5.4L, Monocytes (%) (Auto) 5.9, Eosinophils (%) (Auto) 6.7H, Basophils (%) (Auto ) 0.4, Sodium Level 140, Potassium Level 4.0, Chloride Level 105, Carbon Dioxide Level 26, Anion Gap 9, Blood Urea Nitrogen 22H, Creatinine 1.1, Estimat Glomerular Filtration Rate > 60, Glucose Level 92, Calcium Level 8.9 Current Medications Medications (Trade) Dose Ordered Sig/Leila Route PRN Reason Start Time Stop Time Status Last Admin Dose Admin Acetaminophen (Tylenol) 650 mg Q4H PRN RECTAL FEVER (T>100.5) 01/15/20 21:45 02/14/20 21:44 Heparin Sodium (Porcine) (Heparin 5000 units/ml) 5,000 units EVERY 12 HOURS SUBQ 01/16/20 21:45 02/29/20 21:44 01/16/20 21:23 Hydralazine HCl (Apresoline) 10 mg Q6H PRN ORAL SBP> 160 01/16/20 10:00 04/15/20 09:59 01/16/20 18:52 Hydromorphone HCl (Dilaudid) 0.5 mg Q3H PRN IVP Pain Score 1-3 01/15/20 21:45 01/22/20 21:44 Hydromorphone HCl (Dilaudid) 1 mg Q3H PRN IVP pain score 4-6 01/15/20 21:45 01/22/20 21:44 01/16/20 20:16 Lisinopril (ZestriL) 10 mg DAILY ORAL 01/16/20 16:40 02/15/20 16:39 01/16/20 16:51 Metoclopramide HCl (Reglan) 10 mg Q6H PRN IVP Nausea & Vomiting 01/15/20 21:45 02/14/20 21:44 Metoprolol Succinate (Toprol XL) 25 mg DAILY ORAL 01/17/20 09:00 04/15/20 09:14 Morphine Sulfate (Morphine Sulfate) 4 mg Q4H PRN IVP Breakthrough Pain 01/15/20 21:45 01/22/20 21:44 Ondansetron HCl (Zofran) 4 mg Q6H PRN IVP Nausea & Vomiting 01/15/20 21:45 02/14/20 21:44 Pantoprazole (Protonix) 40 mg DAILY IVP 01/16/20 09:00 02/15/20 08:59 01/16/20 09:10 Senna/Docusate Sodium (Hermelinda-Colace) 1 tab TWICE A DAY ORAL 01/16/20 14:45 02/15/20 14:44 01/16/20 17:09 Tramadol HCl (Ultram) 50 mg Q4H PRN ORAL For Pain 01/16/20 14:45 01/23/20 14:44 Assessment/Plan Assessment/Plan ASSESSMENT Incarcerated ventral hernia s/p ventral herniorrhaphy x4 with application of mesh and partial omentectomy Possible small bowel obstruction-ruled out Hypertension with initial hypertensive urgency Diverticular disease with a history of recurrent diverticulitis Hyperlipidemia PLAN OF CARE MS floor cardiac diet s/p IVF rapid COVID 19 NGT s/p ventral herniorrhaphy x4 with application of mesh and partial omentectomy 01/14 passing gas, no BM yet , add Colace diet as tolerated started- tolerates, a/emetic prn pain management IS at the bedside BP management with Toprol with holding parameters and SHAILESH; Hydralazine prn ; Clonidine patch was dc DVT and GI prophylaxis OOB as tolerated supportive care this am labs stable no fevers pain controlled, ambulated, voided w/out difficulties drain to be dc prior to dc by surgeon or OP-> per surgery recs dc plan later today , will need script for BP meds case discussed and evaluated by supervising physician Eugenio Barajas MD 01/17/20 1351: Subjective Allergies: Coded Allergies: No Known Allergies (Verified , 12/20/07) Assessment/Plan Assessment/Plan Patient seen and examined with OPERATIONS MANAGEMENT TRAINEE. Agree with above A&P as it reflects our joint deliberations. Pain well controlled POD2 autumn PO D/C home later today with OP F/U Zita Pierre NP Jan 17, 2020 07:54 Eugenio Barajas MD Jan 17, 2020 13:51
[2020-01-17 08:00] VITALS: BP 131/80
[2020-01-17] MEDS: Docusate Sod/Senna tab ORAL SCH (08:22)
[2020-01-17] MEDS: Lisinopril 10mg tab ORAL SCH (08:23)
[2020-01-17] MEDS: Heparin 5000 units/ml inj SUBQ SCH (08:27)
[2020-01-17] MEDS ORDERED: Docusate 100mg cap ORAL SCH (09:00)
[2020-01-17] MEDS ORDERED: Lisinopril 10mg tab ORAL SCH (09:00)
[2020-01-17] MEDS ORDERED: Metoprolol Succinate XL 25mg tab ORAL SCH ×2 (09:00)
[2020-01-17] MEDS: Pantoprazole Inj IVP SCH (10:01)
[2020-01-17 12:09] VITALS: BP 165/98
[2020-01-17] MEDS: HydrALAZINE 10mg Tab ORAL PRN (12:14)
[2020-01-17] MEDS ORDERED: Milk of Magnesia 30ml Ud ORAL SCH (12:45)
[2020-01-17 13:44] VITALS: BP 145/98
[2020-01-17] MEDS ORDERED: ZESTRIL10 M1 ORAL (13:45)
[2020-01-17] MEDS ORDERED: METOPROLOL TART25 MG ORAL (13:45)
[2020-01-17] MEDS ORDERED: CEPHALEXIN500 MG ORAL (14:11)
[2020-01-17] MEDS ORDERED: TRAMADOL HCL50 MG ORAL (14:12)
[2020-01-17] MEDS ORDERED: SENNA-DOCUSATE1 EAC1 PO (14:21)
--- NOTE | 2020-01-19 15:42 | Discharge Summary ---
Discharge Summary Discharge Summary _ DATE OF ADMISSION: 01/15/2020 DATE OF DISCHARGE: 01/17/2020 DISCHARGED BY: Dr Barajas REASON FOR ADMISSION: 64 years old male with PMH of diverticulitis, HTN, HLD, ventral hernias with surgery yyears ago , presented to emergency department complaining of abdominal pain at the hernia sites. Symptoms started gradually and increased over 4 days. Upon evaluation patient had no fever, but blood pressure was significantly elevated 210/150. CT of the abdomen pelvis showed two incarcerated ventral hernia with surrounding fat stranding and free fluid. The bowel loops were mildly dilated and there was a concern for small bowel obstruction. Laboratory work-up was stable. No leukocytosis Lactic acid 2.0. Troponin negative Stable electrolytes. BUN 23, creatinine 1.1. Troponin negative, pro BNP 55. EKG revealed sinus rhythm , no acute ischemic changes. Urinalysis revealed no evidence of urinary tract infection. Surgeon consulted and was able to reduce hernia at the bedside. However hernia popped out. Surgeon initially recommended admit for serial abdominal exams, but on further examination and review of CT recommended operative repair. Patient received empiric Zosyn and vancomycin. Patient received labetalol IV. Patient started on the IV fluids, received analgesic and antiemetic and admitted to stepdown unit for further management CONSULTANTS: surgeon Dr. Hendricks [facility] COU[facility]SE: Patient initially admitted to [facility]. Patient was started on IV fluids and was kept n.p.o. Rapid COVID-19 was done preoperatively and was negative. Pain management was addressed.. Blood pressure was managed preoperatively with clonidine patch and IV hydralazine as needed for blood pressure spikes . Antiemetic provided as needed. Later that afternoon patient undergone ventral herniorrhaphy x4 with application of mesh and partial omentectomy. Patient slowly started on diet and advanced as tolerated. Incentive spirometry was on the bedside and encouraged to use while in the bed . Mobilization and ambulation was encouraged. Pain management was addressed. Blood pressure was managed with Toprol with holding parameters and Lisinopril. Clonidine patch was discontinued. DVT and GI prophylaxis provided. Bowel regimen instituted. Follow-up labs remained stable. Pain was controlled , no fevers. Patient tolerated diet well. Patient remained hemodynamically stable . Voided without difficulties . Patient was taught how to take care of the drain . Patient clinically stabilized and was ready for discharge home. FINAL DIAGNOSES: Incarcerated ventral hernia Status post ventral herniorrhaphy 4 with application of mesh and partial omentectomy Possible small bowel obstruction -was ruled out Hypertension with initial hypertensive urgency- resolved Diverticular disease with history of recurrent diverticulitis Hyperlipidemia DISCHARGE MEDICATIONS: See Medication Reconciliation list. DISCHARGE INSTRUCTIONS: Patient was discharged home. Follow-up with Dr. Barajas in 1 week. Follow-up with surgeon as advised for drain removal. Zita Pierre NP Jan 19, 2020 15:42
== END 2020-01-17 15:50 | disposition home or self-care (01) | DRG 337 ==
LOC: EDBD 01:32 → EMR 02:00 → 2W 04:00 → EDBEDREQ 04:18 → 2W 04:41 → 3E 21:38
PROC: 0DNU0ZZ Release Omentum, Open Approach (ICD-10-PCS; principal; 2020-01-15 14:00)
PROC: 0WUF0JZ Supplement Abdominal Wall with Synthetic Substitute, Open Approach (ICD-10-PCS; principal; 2020-01-15 14:00)
DX: K43.6 Other and unspecified ventral hernia with obstruction, without gangrene (principal); K57.30 Diverticulosis of large intestine without perforation or abscess without bleeding; E78.5 Hyperlipidemia, unspecified; I16.0 Hypertensive urgency; I10 Essential (primary) hypertension; F17.200 Nicotine dependence, unspecified, uncomplicated; K66.0 Peritoneal adhesions (postprocedural) (postinfection)
CPT/HCPCS: 36415; 71045; 74177; 80048; 80053; 81003; 83605; 83690; 83880; 84484; 85025; 85610; 93005; 94003; 94150; 96361; 96365; 96368; 96375; 99291; C9399; J2405; J2710; J7030; U0002